=== PATIENT | male | born 1985 | race Caucasian/White ===

== ENCOUNTER 2019-04-04 16:01 | Emergency (ER) | payer OTHER ==
[~2019-04-04] VITALS: Wt 81.6 kg
[~2019-04-04 16:01] MED LIST: METO-319 PO
[2019-04-04 16:05] VITALS: Wt 81.6 kg
[2019-04-04] MEDS ORDERED: SOD CHLORIDE 0.9% 1,000 ML IV STA (18:29)
[2019-04-04 20:11] VITALS: BP 100/78; PULSE 58; RESP 20
== END 2019-04-04 20:13 | disposition home or self-care (01) ==
LOC: E/R 16:01
DX: I49.5 Sick sinus syndrome (principal)
CPT/HCPCS: 36415; 71045; 80053; 83690; 84484; 85025; 93005; 96360; 99285; J7030